=== PATIENT | female | born 1965 | race Caucasian/White ===

== ENCOUNTER 2022-10-26 15:01 | Outpatient (CLI) | payer OTHER ==
--- NOTE | 2022-10-26 16:02 | SLEEP CARE CONSULTATION ---
Information from patient questionnaire entered by Gina Newman. I have reviewed and concur with the information entered by Gina Newman. This document represents the service I personally performed and the decisions made by me, Chelsey Gallegos ARNP. History of Present Illness Service Date and Time: 10/26/2022 1501 Reason for Visit: New patient, sleep apnea on CPAP therapy Chief Complaint: reports: Other (UPDATE SUPPLIES) Date of Onset: snored her whole life but symptoms in mid forties Usual bedtime: 9PM Time it takes to fall asleep: 15IN Snores at night: Yes Observed to quit breathing while asleep: Yes Sleeps alone due to snoring: No Number of times waking at night: 1-2 Reasons for waking at night: reports: Bathroom Toss, Turn, or Twitch while sleeping: No Recalls having dreams: Yes Usually gets out of bed at: 6AM Feels refreshed in the morning: Yes Morning headache: Yes Sleepy or fatigued during the day: No Ever fallen asleep while driving: No Takes day naps: No Dreams during day naps: No Prior sleep studies: Yes Year and Where: [facility] Additional HPI information: GEORGE WHELAN was previously diagnosed to have unknown, AHI unknown, sleep apnea-hypopnea syndrome and comes in today to establish care for CPAP therapy. We do not have a copy of her sleep study. - Parasomnia Symptoms Ever been unable to move upon waking from sleep: No Walks in sleep: No Talks in sleep: Yes Ever acted out dreams in sleep: No Ever felt weak in the knees when startled or emotional: No Bothered by creepy, crawly, restless sensations in legs: No Problems with memory or concentration: Yes CPAP Compliance Data - Data Reviewed with Patient Average duration of nightly device use: 5.7 hours Compliance rate %: 83 (174/180 days used) Current pressure setting (cmH2O): 4-20 (avg 10.8) Average residual AHI: 3.5 Central apnea: 0.5 Obstructive apnea: 3.1 Average large leak: 13 L/min Compliance data discussion: She has been getting supplies from [facility] in [place] but has got some online since moving here to the [place]. She has a Resmed Airsense 10 that was set up 09/2016. She is using a nasal cushion Dreamwear, size medium. She does have a backup mask. She needs a new DME for supplies locally. Subjective Missed days of use due to: reports: travel, other (fall asleep without mask on) Patient concerns: denies: aerophagia, mask discomfort, air blowing in eyes, mask leak noise, condensation in mask/hose, nasal congestion, dry mouth, nose, throat, epistaxis Observed to snore while using device: No Current pressure setting perceived as: comfortable On therapy, patient: reports: sleeping better, awakening more refreshed, being more awake and alert during the day, more rested overall. 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 Patient is and lives in [place]. Have you smoked in the past 12 months: No Alcohol use: Yes Alcohol amount and frequency: 1 DRINK PER WEEK Caffeine use: Yes Caffeine amount and frequency: COFFEE 1 CUP ALMOST DAILY Family History Family history of sleep disordered breathing: Yes Family Hx Sleep Apnea: Mother: Snoring (SON), Sleep apnea - Untreated, Father: Snoring, Sleep apnea - Untreated, Other: Snoring, Sleep apnea - Treated (SON) Allergies and Home Medications Known drug allergies: No Drug allergies reviewed: Yes Home medication list reviewed: Yes Allergy and home medication list: Medications: Levothyroxine Amlodipine Multivitamin Review of Systems Weight gain over past 5 years: 20 Cardiovascular: reports: high blood pressure Gastrointestinal: denies: heartburn Neurological: reports: headaches Psychiatric: denies: anxiety, depression Ear/Nose/Throat: reports: nasal congestion, sinus problems, wisdom teeth removed. denies: tonsillectomy Endocrine: reports: thyroid disease Musculoskeletal: reports: joint pain, neck pain Physical Exam Vital signs obtained and entered by: GINA Eugene MA Blood Pressure: 122/76 (LEFT ARM) Cuff size: regular Heart Rate: 78 O2 Saturation: 99 Height: 5 ft 5 in Weight: 182 lb 12.8 oz Body Mass Index: 30.4 BMI Classification: Obese Neck circumference: 15.25 Heart: regular rate and rhythm Lungs: clear bilaterally Impression and Plan 1. Obstructive Sleep Apnea-Hypopnea Syndrome, unknown, with good treatment compliance and good apnea control. On CPAP therapy, the patient has better sleep quality and is more rested overall. We have requested a copy of her sleep study. She has no issues with CPAP use but does needs a new DME supplier. She also has a ResMed Airsense 10 that is over 5 years old. I will have my appeals coordinator inform of DME options. A DWO prescription will then be made. Patient advised to contact this office if further supply problems. I reviewed therapy report on her device. The patients pressure will be changed to autoCPAP 8-12 cmH20 to reflect pressure being used. Patient advised to contact me if pressure change is uncomfortable so that it can be adjusted. Goals for apnea control discussed. Patient's apnea severity and rationale for treatment to reduce apnea, improve sleep quality and reduce cardiovascular and cerebrovascular events was reviewed. I also reviewed the benefit of consistent device use of CPAP for hypertension. 2. Obesity, unspecified. Currently patients BMI is 30.4. Obesity increases the risk of apnea, CPAP pressure requirements and overall health risks especially cardiovascular and diabetes. Thus patient is advised to lose weight. * Change auto CPAP pressure to 8-12 cmH2O * Obtain sleep study to verify diagnosis and severity * Transfer DME * Update machine * Update supplies * Notify me if snoring with mask or feeling that the pressure is too much or too little * Attempt to lose weight * Call this office if any problems using CPAP * Return for follow up one month after obtaining, or sooner if concerns arise Counseling Topics: Spare mask, Weight loss health impact Visit Type: In Office Time Spent with Patient (minutes): 34 Provider Statement: I spent 100% of the Face to Face Visit with the patient with greater than 50% spent counseling the patient and coordination of care.
[2022-10-26 16:03] VITALS: BP 122/76
== END 2022-10-26 15:02 | disposition home or self-care (01) ==
LOC: SC 15:01
PROVIDERS: ATTEND Nurse Practitioner Family
DX: G47.33 Obstructive sleep apnea (adult) (pediatric) (principal); E66.9 Obesity, unspecified; Z68.30 Body mass index [BMI] 30.0-30.9, adult
CPT/HCPCS: 99203; 99212

== ENCOUNTER 2023-12-05 14:42 | Outpatient (CLI) | payer OTHER ==
--- NOTE | 2023-12-05 15:20 | Sleep Patient Instructions ---
Sleep Center Visit Summary - Patient Visit Information Reason for Visit: Annual follow-up - Patient Instructions Additional Instructions: You will continue with CPAP therapy with pressure set at 8-12 cmH2O. You will be completing a sleep study, either an in-lab polysomnography (PSG) or home sleep study (HST). You will follow-up in the sleep care office after the sleep study is completed to hear the results and talk about therapy, if needed. You will be called by our office staff to schedule this appointment, but you may contact us with any questions. - Clinic Information Contact: [facility] [address] [place] [address] [email or web address] T: [phone]
--- NOTE | 2023-12-05 15:25 | SLEEP CARE CONSULTATION ---
Information from patient questionnaire entered by Gina Newman. I have reviewed and concur with the information entered by Gina Newman. This document represents the service I personally performed and the decisions made by me, Chelsey Gallegos ARNP. History of Present Illness Service Date and Time: 12/05/2023 1442 Previous diagnosis: Obstructive Sleep Apnea-Hypopnea Syndrome (Unknown severity) Reason for follow up: annual (LAST SEEN 10/2022 NEED MACHINE) Equipment type: CPAP (Resmed Airsense 10, s/u 09/20/2016) Equipment obtained from: Other ([employer]) Mask style: Nasal pillows Mask brand: Respironics (Dreamwear) Backup mask available: Yes Last cushion change: couple weeks ago Prior sleep studies: Yes Year and Where: [facility] additional information: GEORGE WHELAN was diagnosed to have unknown, AHI unknown, obstructive sleep apnea-hypopnea syndrome and returned today for CPAP therapy annual follow-up. Sleep Study - Results Prior sleep studies: Yes Year and Where: [facility] CPAP Compliance Data - Data Reviewed with Patient Average duration of nightly device use: 5 hours 18 minutes Compliance rate %: 65 (314/365 days used) Current pressure setting (cmH2O): 8-12 Average residual AHI: 5.2 Central apnea: 0.4 Obstructive apnea: 3.7 Hypopnea: 0.5 Average large leak: 1 L/min Subjective Missed days of use due to: reports: mask issues Patient concerns: reports: air blowing in eyes, dry mouth, nose, throat (more when she takes mask off), other (headaches now, but may be allergy related right now). denies: aerophagia, mask discomfort, mask leak noise, condensation in mask/hose, nasal congestion, epistaxis Observed to snore while using device: Yes (sometimes) Current pressure setting perceived as: comfortable (sometimes fluctuates too high) On therapy, patient: reports: sleeping better, awakening more refreshed, being more awake and alert during the day, more rested overall. denies: drowsiness while driving Initial [place] Sleepiness Scale score: 10 (10/26/22) Current [place] Sleepiness Scale score: 11 (12/05/23) Allergies and Home Medications Known drug allergies: No Drug allergies reviewed: Yes Home medication list reviewed: Yes (no changes) Allergy and home medication list: Allergies No Known Drug Allergies Allergy (Verified 12/03/23 10:27) Review of Systems Review of systems same as previous: Yes (NO CHANGE) Physical Exam Vital signs obtained and entered by: GINA Eugene MA Blood Pressure: 140/77 (RIGHT ARM) Cuff size: regular Heart Rate: 72 O2 Saturation: 100 Height: 5 ft 5 in Weight: 167 lb 3.2 oz Weight change since last visit: 15 lb loss Body Mass Index: 27.8 BMI Classification: Overweight Impression and Plan 1. Obstructive Sleep Apnea-Hypopnea Syndrome, unknown, with good treatment compliance and good apnea control with minimal elevation of residual AHI. On CPAP therapy, the patient has better sleep quality and is more rested overall. We have been unable to get a copy of her last sleep study and she has also tried without result. I recommend proceeding to polysomnography to confirm the diagnosis and to assess severity. I obtained agreement to proceed. Once we have the sleep study results we can get her set up with a replacement device, supplies and new DME supplier. Patient's apnea severity and rationale for treatment to reduce apnea, improve sleep quality and reduce cardiovascular and cerebrovascular events was reviewed. I also reviewed the benefit of consistent device use of CPAP for hypertension. 2. Overweight, unspecified. Currently patients BMI is 27.8. She has lost weight by watching her portions and increased her activity. Obesity increases the risk of apnea, CPAP pressure requirements and overall health risks especially cardiovascular and diabetes. Thus patient is advised to continue to try to lose weight. * Continue auto CPAP pressure at 8-12 cmH2O * PSG to verify diagnosis and severity * Notify me if snoring with mask or feeling that the pressure is too much or too little * Attempt to lose weight * Call this office if any problems using CPAP * Return for follow up after sleep study, or sooner if concerns arise Counseling Topics: Spare mask, Weight loss health impact Plan: PSG and followup Visit Type: In Office Time Spent with Patient (minutes): 23 Provider Statement: I spent 100% of the Face to Face Visit with the patient with greater than 50% spent counseling the patient and coordination of care.
[2023-12-05 15:34] VITALS: BP 140/77; O2SAT 100
== END 2023-12-05 14:43 | disposition home or self-care (01) ==
LOC: SC 14:42
PROVIDERS: ATTEND Nurse Practitioner Family
DX: G47.33 Obstructive sleep apnea (adult) (pediatric) (principal); E66.3 Overweight; Z68.27 Body mass index [BMI] 27.0-27.9, adult
CPT/HCPCS: 99212; 99213

== ENCOUNTER 2024-01-05 19:36 | Outpatient (CLI) | payer OTHER | END 2024-01-05 19:37 | disposition home or self-care (01) | LOC: SC 19:36 | PROVIDERS: ATTEND Nurse Practitioner Family | DX: G47.33 Obstructive sleep apnea (adult) (pediatric) (principal) | CPT/HCPCS: 95810 ==

== ENCOUNTER 2024-02-06 10:34 | Outpatient (CLI) | payer OTHER ==
--- NOTE | 2024-02-06 10:28 | SLEEP CARE CONSULTATION ---
Information from patient questionnaire entered by Deepa Newman. I have reviewed and concur with the information entered by Deepa Newman. This document represents the service I personally performed and the decisions made by , Chelsey Gallegos ARNP. History of Present Illness Service Date and Time: 02/06/2024 1000 Initial [place] Sleepiness Scale score: 10 (10/26/22) Current [place] Sleepiness Scale score: 7 (02/06/24) Additional HPI information: GEORGE WHELAN returns via video appointment today for follow up and results of the recently performed polysomnography. The sleep study done on 01/05/24 showed severe obstructive sleep apnea with an average AHI of 30.6 and margarita oxygen saturation of 81%. I explained the pathophysiology behind obstructive sleep apnea. We then spent quite a bit of time discussing different treatment options. For mild obstructive sleep apnea, surgery and oral appliance are alternatives to nasal CPAP therapy but in moderate or severe cases, nasal CPAP is the most effective and reliable treatment. I reviewed the impact of weight changes on sleep apnea and strongly recommended losing weight. The patient will continue with the nasal CPAP therapy set at 8-12 cmH20. Patient was cautioned about risks of drowsy driving until sleepiness symptoms resolve. Sleep Study - Results Type of Sleep Study: Polysomnography (COMPLETED 01/05/24) Prior sleep studies: Yes Year and Where: [facility] Polysomnography/Home Sleep Study results: IMPRESSION: The quality of the study is good. The patient had normal sleep efficiency. The sleep architecture was abnormal for sleep fragmentation and reduced amount of time spent in REM and slow wave sleep (N3). Respiratory monitoring showed severe obstructive sleep apnea-hypopnea (AHI = 30.6) associated with frequent arousals, oxyhemoglobin desaturation and mild hypoxia (margarita oxygen saturation o f 81%). The patient did not sleep supine during this study. Snore was light to loud in intensity. There was no significant periodic leg movement of sleep. Cardiac rhythm was normal sinus rhythm without significant arrhythmia. No abnormal behavior (parasomnia) observed during the night. Allergies and Home Medications Known drug allergies: No Drug allergies reviewed: Yes Home medication list reviewed: Yes (no changes) Allergy and home medication list: Allergies No Known Drug Allergies Allergy (Verified 02/04/24 10:29) Review of Systems Review of systems same as previous: Yes (NO CHANGE) Physical Exam Vital signs obtained and entered by: DEEPA Eugene MA Height: 5 ft 5 in (PER PPT) Weight: 165 lb (PER PT) Body Mass Index: 27.4 BMI Classification: Overweight Impression and Plan 1. Obstructive Sleep Apnea-Hypopnea Syndrome, severe, with lowest oxygen saturation of 81%. As mentioned above, the patient will be continued on nasal autoCPAP therapy with pressure set at 8-12 cmH2O. She is in need of a DME supplier and says her machine was last updated in 2017. I will have my marketing database coordinator inform of DME options. Patient advised to contact this office if further supply problems. The patients CPAP is over 5 years old and of reasonable use. Thus, the CPAP will be updated. A DWO prescription will be made. Compliance guidelines for new device and follow up discussed. Patient's apnea severity and rationale for treatment to reduce apnea, improve sleep quality and reduce cardiovascular and cerebrovascular events was reviewed. I also reviewed the benefit of consistent device use of CPAP for hypertension. 2. Hypoxemia, mild, with a margarita oxygen saturation of 81% and 9 minutes spent under 90%. The baseline oxygen saturation was normal with an average oxygen saturation of 94%. 3. Overweight, unspecified. Currently patients BMI is 27.4. Obesity increases the risk of apnea, CPAP pressure requirements and overall health risks especially cardiovascular and diabetes. Thus patient is advised to lose weight. * Continue auto CPAP pressure at 8-12 cmH2O * DME Transfer * Update machine * Update supplies * Notify me if snoring with mask or feeling that the pressure is too much or too little * Attempt to lose weight * Call this office if any problems using CPAP * Return for follow up one month after obtaining new CPAP, or sooner if concerns arise Continue with device pressure at (cmH2O): 8-12 Visit Type: Telehealth Video Video Type: [employer] Patient Location: Work Location of Provider: Office Patient agrees and consents to this telehealth visit type: Yes Patient agrees to have their insurance billed: Yes Time Spent with Patient (minutes): 20 Provider Statement: I spent 100% of the Telehealth Video Call with the patient with greater than 50% spent counseling the patient and coordination of care.
== END 2024-02-06 10:35 | disposition home or self-care (01) ==
LOC: SC 10:34
PROVIDERS: ATTEND Nurse Practitioner Family
DX: G47.33 Obstructive sleep apnea (adult) (pediatric) (principal); R09.02 Hypoxemia; E66.3 Overweight; Z68.27 Body mass index [BMI] 27.0-27.9, adult